=== PATIENT | female | born 1990 | race African-American/Black ===

== ENCOUNTER 2024-10-16 00:16 | Emergency (ER) | payer OTHER, SELFPAY ==
[2024-10-16 00:17] VITALS: BP 142/88
[2024-10-16 00:51] LABS: Hematocrit 32.0 % (37.0-47.0); Hemoglobin 10.6 g/dL (12.0-16.0); Mean Corp Hgb Conc. 33.1 g/dL (33.0-37.0); Mean Corpuscular Volume 95.0 fL (81.0-99.0); Nucleated Red Blood Cells % 0 %; Platelet Count 254 10^3/uL (130-400); Red Cell Dist. Width 13.2 % (11.5-14.5)
[2024-10-16 01:52] LABS: Beta HCG Quantitative 77078.00 mIU/ml
--- NOTE | 2024-10-16 02:50 | ED.GENMED ---
History of Present Illness
General
Chief Complaint: Problems
Source: patient
Exam Limitations: none
Time Seen by Provider: 10/16/24 02:41
Nursing documentation reviewed up to this point in time: agreed with
History of Present Illness
History of Present Illness:
This is a 34-year-old woman 4 para 2 currently 15 weeks . She presents with vaginal bleeding that began tonight just prior to arrival. Admits to passing a moderate amount of bright red blood without clots. She denies abdominal
pain or cramping. Vaginal bleeding noted after she voided but she has not noticed blood in her urine, no dysuria nor urgency nor hematuria. She does note a palpable bulge within her vagina that is only noted when she bears down.
Since arrival to the ED she has had no recurrent vaginal bleeding. Continues to deny abdominal pain, nor cramping, no vaginal fullness. No back pain or flank pain.
She follows with [facility] and has an appointment this week.
Past History
Past History
ED Past Medical History: Other (Ovarian cyst)
ED Past Surgical History: Orthopedic (Left ankle surgery)
Social History
Tobacco: Non-smoker
Alcohol: None
Personal: Single
Living: with family
Employment: Employed
Phy Exam
Physical Exam
Physical Exam:
GENERAL: 34-year-old woman appears her stated age, bright and alert, pleasant, appears in no acute distress.
EYE: anicteric
NECK: Supple, nontender, no meningismus, no significant adenopathy.
ENT: oral mucosa is moist. No rhinorrhea.
CARDIAC: Regular rate and rhythm. no murmur.
LUNGS: No respiratory distress.
ABDOMEN: Soft, nondistended, without focal tenderness, no r/g, no cvat. normoactive BS.
NEUROLOGICAL: Alert and oriented x3, no focal neuro deficits. Gait is steady.
SKIN: Warm and dry, normal color, skin intact. No rash.
MUSCULOSKELETAL: No C/C/E. peripheral pulses are full and equal b/l. No palpable tenderness.
PSYCH: Normal and appropriate interaction.
Course
Orders/Labs/Results
Orders:
Orders
10/16/24 00:20
US 1st Trimester Urgent
Comment:
Reason For Exam: 14 WEEKS WITH SPOTTING
10/16/24 00:43
Type+Screen Urgent
Beta HCG Quantitative Urgent
Is this a screen?: No
Complete Blood Count/With Diff Urgent
Abnormal Lab Results
10/16/24
00:43
WBC 12.5 H 10^3/uL
(4.8-10.8)
RBC 3.37 L 10^6/uL
(4.20-5.40)
Hgb 10.6 L g/dL
(12.0-16.0)
Hct 32.0 L %
(37.0-47.0)
MCH 31.5 H pg
(27.0-31.0)
Abs Immat Gran (auto) 0.1 H 10^3/uL
(0-0.05)
Absolute Neuts (auto) 9.3 H 10^3/uL
(1.4-6.5)
Absolute Monos (auto) 0.7 H 10^3/uL
(0.1-0.6)
Lymphocytes % 17.8 L %
(20.5-51.1)
10/16/24 00:43
Vital Signs
Initial and Last Documented VS:
Initial Vital Signs
Temp Pulse Resp BP Pulse Ox
98.1 F 80 20 142/88 99
10/16/24 00:17 10/16/24 00:17 10/16/24 00:17 10/16/24 00:17 10/16/24 00:17
Last Documented Vital Signs
Temp Pulse Resp BP Pulse Ox
98.1 F 78 18 136/76 99
10/16/24 00:17 10/16/24 02:52 10/16/24 02:52 10/16/24 02:52 10/16/24 02:58
Information
Weeks gestation: Weeks: (13 weeks, 5 days.)
Location: Location: ([facility])
MDM/Problems Addressed
Differential Diagnosis Includes:
Patient is 4 para 2 currently 14 weeks . Presents with an episode of vaginal bleeding.
She has had no recurrent bleeding, denies abdominal pain or cramping.
She does note somewhat longstanding history of palpable vulvar bulge when bearing down.
Concern for incompetent cervix, threatened miscarriage.
Ultrasound however is reassuring showing single viable [facility]. heart tones 155. Posterior placenta appears intact. Cervix is thick, closed measuring 5.1 cm.
Labs show mild but stable anemia. Type and Rh is O+.
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
It is reassuring that she has had no further bleeding and continues to deny abdominal pain or cramping.
Recommend pelvic rest as well as avoidance of bearing down.
Return precautions discussed.
*Radiology
Radiology exam reviewed: radiology read reviewed
*Pulse Oximetry
SaO2: 99
Oxygen Mode of Delivery: Room air
Patient hypoxic: no
*Critical Care Note
Total Time (30-74mins, 75-104mins- exclusive of procedures): Not Applicable
ED Attending Note
-
Portions of this chart may have been created with voice recognition software.� Occasional wrong word or��sound alike� substitutions may have occurred due to the inherent limitations of voice recognition software.
Discharge Plan
Departure
Patient Disposition: Home (Routine Discharge)
Date of Disposition: 10/16/24
Time of Disposition: 02:50
Patient with high blood pressure during this ER visit?: Yes
Condition: Good
Discharge Problem:
Threatened miscarriage
Instructions: Threatened Miscarriage (DC), BLOOD PRESSURE
Prescriptions:
No Action
prenat.vits,glory,[id number] Tablet
1 tab PO DAILY
acetaminophen 325 mg Tablet
650 mg PO Q4HPRN PRN (Reason: mild pain) Qty: 0 0RF
sennosides-docusate sodium [Senna Plus] 8.6-50 mg Tablet
1 tab PO DAILYPRN PRN (Reason: constipation) Qty: 0 0RF
ibuprofen 600 mg Tablet
400 mg PO Q4HPRN PRN (Reason: moderate pain/cramps) Qty: 0 0RF
Referrals:
PRIVATE,PHYSICIAN [Family Provider, Internal Medicine]
Activity Restrictions/Additional Instructions:
Follow-up with your boat worker this week for recheck.
Avoid straining to pass a bowel movement or to urinate.
We recommend pelvic rest, meaning nothing in your vagina including tampons, douching, as well as abstain from vaginal intercourse.
Interventions
Interventions:
*Risk Screen - Suicide Last Done: 10/16/24 00:17
*General Assessment Last Done: 10/16/24 00:50
*Neglect/Abuse Screening Last Done: 10/16/24 00:17
*ED- Fall Risk Assessment Last Done: 10/16/24 00:50
*Nursing Disposition Last Done: 10/16/24 02:58
ED-Female Genitourinary Assessment Last Done: 10/16/24 00:50
Discharge Date and Time
Discharge Date/Time: 10/16/24 02:58
Print Language: SYRIAC
[2024-10-16 02:52] VITALS: BP 136/76
== END 2024-10-16 02:58 | disposition home or self-care (01) ==
LOC: EMR 00:16
PROVIDERS: EMERGENCY PHYSICIAN Emergency Medicine
DX: O20.0 Threatened abortion (principal); Z3A.15 15 weeks gestation of pregnancy; O99.012 Anemia complicating pregnancy, second trimester; R03.0 Elevated blood-pressure reading, without diagnosis of hypertension; Z88.1 Allergy status to other antibiotic agents
CPT/HCPCS: 99284; 76801; 84702; 85025; 86850; 86900; 86901

== ENCOUNTER → 2024-12-04 07:07 | Outpatient (REF) | payer OTHER, SELFPAY | LOC: PNTC 07:07 | PROVIDERS: ATTENDING PHYSICIAN Obstetrics & Gynecology | DX: O09.529 Supervision of elderly multigravida, unspecified trimester (principal) | CPT/HCPCS: 76811 ==

== ENCOUNTER → 2025-01-01 07:47 | Outpatient (REF) | payer OTHER, SELFPAY | LOC: PNTC 07:47 | PROVIDERS: ATTENDING PHYSICIAN Obstetrics & Gynecology | DX: O99.212 Obesity complicating pregnancy, second trimester (principal); E66.01 Morbid (severe) obesity due to excess calories | CPT/HCPCS: 76816 ==

== ENCOUNTER → 2025-01-28 07:10 | Outpatient (REF) | payer OTHER, SELFPAY | LOC: PNTC 07:10 | PROVIDERS: ATTENDING PHYSICIAN Obstetrics & Gynecology | DX: O99.213 Obesity complicating pregnancy, third trimester (principal); E66.01 Morbid (severe) obesity due to excess calories | CPT/HCPCS: 76816 ==

== ENCOUNTER → 2025-02-26 07:11 | Outpatient (REF) | payer OTHER, SELFPAY | LOC: PNTC 07:11 | PROVIDERS: ATTENDING PHYSICIAN Obstetrics & Gynecology | DX: O99.213 Obesity complicating pregnancy, third trimester (principal); E66.01 Morbid (severe) obesity due to excess calories; Z36.88 Encounter for antenatal screening for fetal macrosomia | CPT/HCPCS: 76816 ==

== ENCOUNTER → 2025-03-12 07:04 | Outpatient (REF) | payer OTHER, SELFPAY | LOC: PNTC 07:04 | PROVIDERS: ATTENDING PHYSICIAN Obstetrics & Gynecology | DX: O99.213 Obesity complicating pregnancy, third trimester (principal); E66.01 Morbid (severe) obesity due to excess calories; Z36.88 Encounter for antenatal screening for fetal macrosomia | CPT/HCPCS: 59025; 76815 ==

== ENCOUNTER 2025-03-14 21:38 | Emergency (ER) | payer OTHER, SELFPAY ==
[2025-03-14 21:39] VITALS: BP 132/79
[2025-03-14 22:26] VITALS: BP 96/58
[2025-03-14 22:28] VITALS: BP 96/58
[2025-03-14 22:31] VITALS: BMI 46.8
[2025-03-14 23:11] VITALS: BP 106/52
[2025-03-14] MEDS: DUONEB 3 ML INH (23:19)
[2025-03-14] MEDS: NSS 1000 IV (23:44)
[2025-03-14 23:54] LABS: COVID-19 Antigen Negative (Negative)
[2025-03-15 00:01] VITALS: BP 104/61
[2025-03-15 01:00] VITALS: BP 133/81
--- NOTE | 2025-03-15 01:25 | ED.GENMED ---
History of Present Illness
General
Chief Complaint: Cold/Flu/URI Symptoms
Source: patient
Exam Limitations: none
Time Seen by Provider: 03/14/25 22:30
History of Present Illness
History of Present Illness:
Note:
CHIEF COMPLAINT(S)
Cough, greenish-yellow sputum, blood in sputum, difficulty breathing.
HISTORY OF PRESENT ILLNESS
The patient is a 35-year-old female who is , presenting with a worsening cough. Initially, the patient was feeling better but reported a return of symptoms approximately nine days ago. The cough has been productive of greenish-yellow sputum,
and tonight, she noticed the presence of blood in the sputum. There is associated difficulty in taking deep breaths. A low-grade fever was noted at home, reaching 100.1�F. The patient denies any recent medical treatment or medications for these
symptoms. movements are reported to be normal.
PHYSICAL EXAM
General: Alert, no acute distress. Dry cough noted on exam
Skin: Warm, dry.
Head: Normocephalic, atraumatic.
Neck: Supple, trachea midline.
Eye Ears, nose, mouth and throat: Oral mucosa moist.
Cardiovascular: Normal peripheral perfusion, no edema.
Respiratory: Respirations are non-labored. Lungs auscultation result not provided.
Gastrointestinal: Abdomen nondistended. Gravid uterus noted
Back: Normal range of motion, normal alignment.
Musculoskeletal: Normal range of motion, normal strength.
Neurological: Alert and oriented to person, place, time, and situation, no focal neurological deficit observed.
Psychiatric: Cooperative, appropriate mood & affect.
PLAN
- Perform a chest X-ray to rule out pneumonia.
- Order viral swabs for COVID-19 and influenza.
- Administer intravenous fluids to improve hydration and symptom relief.
- Provide a breathing treatment to help open the airways, potentially causing an initial increase in cough.
- Monitor heart tones.
DIFFERENTIAL DIAGNOSIS
The Differential Diagnosis includes, in no particular order and is not limited to:
1. Pneumonia
2. Upper respiratory tract infection
3. Acute bronchitis
4. Pulmonary embolism
5. Allergic reaction
6. Asthma exacerbation
7. Viral influenza
8. COVID-19 infection
9. Gastroesophageal reflux disease
10. Pulmonary edema
Disposition:
SUMMARY OF ENCOUNTER
The patient is a 35-year-old female who presented in the emergency department with a cough and a low-grade fever. At home, she took acetaminophen (Tylenol) to manage her fever. Upon arrival, she was afebrile, and her vital signs, including
pulse oximetry, were within normal limits. After treatment with intravenous fluids and bronchodilators, the patient reported feeling much better. A chest X-ray was performed and did not demonstrate signs of pneumonia. COVID-19 and influenza tests
were both negative. The heart rate was also confirmed to be normal. Clinical suspicion leans towards acute bronchitis.
DISPOSITION
Discharge
ASSESSMENT
The patient is likely experiencing acute bronchitis.
EMERGENCY TREATMENTS ADMINISTERED
Intravenous fluids and bronchodilator treatment were provided, which improved the patients symptoms.
PLAN
The patient will be discharged with a prescription for an inhaler to aid breathing. It is advised to maintain proper hydration and continue taking acetaminophen for any fever that may arise. Steroids and antibiotics are not prescribed at this time.
The patient is advised to follow up with her OB for continued care.
INDEPENDENT REVIEW OF LABS AND INTERPRETATION OF TESTS
- My independent review of the chest X-ray indicates no pneumonia.
- My independent review of viral swabs shows negative results for COVID-19 and influenza.
PATIENT EDUCATION AND COUNSELING
The patient was counseled on the importance of adequate fluid intake and fever management with acetaminophen. She was also advised on her current condition of suspected bronchitis and the plan for treatment.
MEDICATION RECONCILIATION
- Prescription for an inhaler provided for use as needed for breathing difficulties.
- Continues to use acetaminophen for fever control.
MEDICAL DECISION MAKING
- Complexity of Data Reviewed: The differential diagnosis included pneumonia, upper respiratory tract infection, acute bronchitis, pulmonary embolism, asthma exacerbation, COVID-19 infection, and viral influenza.
- Data:
- Category 1: COVID-19 and influenza tests reviewed; chest X-ray independently interpreted.
- Risk: Consideration of Admission/Observation: Escalation of care including admission/observation was considered given the complexity and risk of the patients presenting complaint. However, I feel the patient is safe for outpatient management with
close follow-up. Reasoning: Work-up is reassuring, does not reveal any acute life/organ-threatening processes, patients symptoms are well controlled upon re-evaluation, re-examination is reassuring, vitals are stable, patient agreeable with
discharge, reliable for follow-up.
DIAGNOSIS
- Acute bronchitis (J20.9)
Past History
Past History
ED Past Medical History: Other (Ovarian cyst)
ED Past Surgical History: Orthopedic (Left ankle surgery)
Social History
Tobacco: Non-smoker
Alcohol: None
Personal: Single
Living: with family
Employment: Employed
Phy Exam
Physical Exam
Physical Exam:
.
Course
Orders/Labs/Results
Orders:
Orders
03/14/25 22:31
CR Chest - 2 Views Urgent
Comment:
Reason For Exam: cough, fever
03/14/25 22:42
Ipratropium/Albuterol Sulfate [Duoneb] 3 ml INH R NOW STA
03/14/25 22:43
0.9% Sodium Chloride 1000 ml [Nss] 1,000 ml IV BOLUS
03/14/25 23:21
COVID-19 Antigen Urgent
Source: Nasal Swab
Influenza A+B Rapid Molecular Urgent
VAISHALI Source: Nasal Swab
Specimen Description:
Vital Signs
Initial and Last Documented VS:
Initial Vital Signs
Temp Pulse Resp BP Pulse Ox
98.1 F 97 20 132/79 99
03/14/25 21:39 03/14/25 21:39 03/14/25 21:39 03/14/25 21:39 03/14/25 21:39
Last Documented Vital Signs
Temp Pulse Resp BP Pulse Ox
98.5 F 94 20 96/58 97
03/14/25 23:30 03/14/25 23:30 03/14/25 23:30 03/14/25 22:28 03/14/25 23:30
*Pulse Oximetry
SaO2: 97
Oxygen Mode of Delivery: Room air
Patient hypoxic: no
*Critical Care Note
Total Time (30-74mins, 75-104mins- exclusive of procedures): Not Applicable
ED Attending Note
-
Portions of this chart may have been created with voice recognition software.� Occasional wrong word or��sound alike� substitutions may have occurred due to the inherent limitations of voice recognition software.
Discharge Plan
Departure
Patient Disposition: Home (Routine Discharge)
Date of Disposition: 03/15/25
Time of Disposition: :
Patient with high blood pressure during this ER visit?: No
Discharge Problem:
Acute bronchitis
Instructions: Acute Bronchitis, Adult (DC)
Prescriptions:
New
albuterol sulfate [Ventolin HFA] 90 mcg/actuation HFA aerosol inhaler
2 puff inhalation Q6H PRN (Reason: shortness of breath or wheezing) Qty: 6.7 0RF
No Action
prenat.vits,glory,[id number]-vjsxj Tablet
1 tab PO DAILY
acetaminophen 325 mg Tablet
650 mg PO Q4HPRN PRN (Reason: mild pain) Qty: 0 0RF
sennosides-docusate sodium [Senna Plus] 8.6-50 mg Tablet
1 tab PO DAILYPRN PRN (Reason: constipation) Qty: 0 0RF
ibuprofen 600 mg Tablet
400 mg PO Q4HPRN PRN (Reason: moderate pain/cramps) Qty: 0 0RF
Referrals:
Asmita Ibarra [Other]
UNKNOWN - PT DOES,NOT KNOW [Family Provider]
Activity Restrictions/Additional Instructions:
Please drink plenty fluids and use Tylenol as needed. Please see your OB in the next 3 to 5 days for follow-up valuation. Return immediately for difficulty breathing, worsening symptoms or any other concerns.
Interventions
Interventions:
*Risk Screen - Suicide Last Done: 03/14/25 21:43
*General Assessment Last Done: 03/14/25 21:43
*Neglect/Abuse Screening Last Done: 03/14/25 21:43
*ED- Fall Risk Assessment Last Done: 03/14/25 21:43
*ED COVID-19 Vaccine History Last Done: 03/14/25 21:43
*ED Influenza Vaccine History Last Done: 03/14/25 21:43
ED- Pulmonary Assessment Last Done: 03/14/25 22:32
Discharge Date and Time
Print Language: BERMUDIAN
== END 2025-03-15 01:56 | disposition home or self-care (01) ==
LOC: EMR 21:38
PROVIDERS: EMERGENCY PHYSICIAN Emergency Medicine
DX: O99.519 Diseases of the respiratory system complicating pregnancy, unspecified trimester (principal); J20.9 Acute bronchitis, unspecified; Z3A.00 Weeks of gestation of pregnancy not specified
CPT/HCPCS: 99284; 96360; 94640; 71046; 87502; 87811

== ENCOUNTER → 2025-03-19 07:04 | Outpatient (REF) | payer OTHER, SELFPAY | LOC: PNTC 07:04 | PROVIDERS: ATTENDING PHYSICIAN Obstetrics & Gynecology | DX: O99.213 Obesity complicating pregnancy, third trimester (principal); E66.01 Morbid (severe) obesity due to excess calories; Z36.88 Encounter for antenatal screening for fetal macrosomia | CPT/HCPCS: 59025; 76815 ==

== ENCOUNTER → 2025-03-26 07:01 | Outpatient (REF) | payer OTHER, SELFPAY | LOC: PNTC 07:01 | PROVIDERS: ATTENDING PHYSICIAN Obstetrics & Gynecology | DX: O99.213 Obesity complicating pregnancy, third trimester (principal); E66.01 Morbid (severe) obesity due to excess calories; Z36.88 Encounter for antenatal screening for fetal macrosomia | CPT/HCPCS: 59025; 76816 ==

== ENCOUNTER → 2025-04-04 08:00 | Outpatient (REF) | payer OTHER, SELFPAY | LOC: PNTC 08:00 | PROVIDERS: ATTENDING PHYSICIAN Obstetrics & Gynecology | DX: O99.213 Obesity complicating pregnancy, third trimester (principal); E66.01 Morbid (severe) obesity due to excess calories; Z36.88 Encounter for antenatal screening for fetal macrosomia | CPT/HCPCS: 59025; 76815 ==

== ENCOUNTER 2025-04-07 22:58 | Inpatient (IN) | payer OTHER, SELFPAY ==
[2025-04-07 23:34] VITALS: BP 115/61; BMI 46.4
[2025-04-08 00:12] LABS: Hematocrit 29.5 % (37.0-47.0); Hemoglobin 9.6 g/dL (12.0-16.0); Mean Corp Hgb Conc. 32.5 g/dL (33.0-37.0); Mean Corpuscular Volume 94.6 fL (81.0-99.0); Platelet Count 250 10^3/uL (130-400); Red Cell Dist. Width 14.5 % (11.5-14.5)
[2025-04-08] MEDS: GENTAMICIN 60 MG IV (00:43)
[2025-04-08] MEDS: LR 1000 IV (00:43)
[2025-04-08] MEDS: TYLENOL 975 MG PO (00:50)
[2025-04-08] MEDS: BICITRA 30 ML PO (00:50)
[2025-04-08] MEDS: PITOCIN 30 UNITS/NSS 500 ML IV (02:45)
[2025-04-08] MEDS: BENADRYL 25 MG IV (02:47)
[2025-04-08] MEDS: ZOFRAN 4 MG IV (06:38)
[2025-04-08] MEDS: COLACE 100 MG PO ×2 (07:50→20:01)
[2025-04-08] MEDS: TORADOL 15 MG IV ×3 (07:50→20:01)
[2025-04-08] MEDS: PRENATAL PLUS 1 TABLET PO (07:50)
[2025-04-08] MEDS: REGLAN 10 MG IV (07:51)
--- NOTE | 2025-04-08 07:54 | W.PN.ANS.POP ---
Anesthesia Post Operative
- Anesthesia Post Op Note
Vital Signs Stable-See Nursing Note: Yes
Airway Patent: Yes
Adequate Pain Control: Yes
Change in Mental Status: No
Current Postoperative Nausea & Vomiting: Yes (received 4mg zofran. Team made aware and is working to improve comfort.)
Anesthesia Complications: No
General Anesthetic Recall: No
Unplanned Admission: No
Post Op Hydration Adequate: Yes
[2025-04-08] MEDS: BENADRYL 25 MG PO (20:54)
[2025-04-09] MEDS: TORADOL 15 MG IV (02:00)
[2025-04-09 05:50] LABS: Hematocrit 27.8 % (37.0-47.0); Hemoglobin 8.8 g/dL (12.0-16.0); Mean Corp Hgb Conc. 31.7 g/dL (33.0-37.0); Mean Corpuscular Volume 97.2 fL (81.0-99.0); Platelet Count 232 10^3/uL (130-400); Red Cell Dist. Width 14.3 % (11.5-14.5)
[2025-04-09] MEDS: COLACE 100 MG PO (08:41)
[2025-04-09] MEDS: FEOSOL 325 MG PO (08:41)
[2025-04-09] MEDS: PRENATAL PLUS 1 TABLET PO (08:41)
[2025-04-09] MEDS: MOTRIN 600 MG PO (08:41)
[2025-04-09] MEDS: ROXICODONE 10 MG PO ×2 (08:42→14:45)
[2025-04-10 11:23] LABS: Syphilis/T. pallidum Ab Reflex Negative (Negative)
== END 2025-04-09 17:58 | disposition home or self-care (01) | DRG 788 ==
LOC: LDRP 22:58
PROVIDERS: Obstetrics & Gynecology; ADMITTING PHYSICIAN Obstetrics & Gynecology
PROC: 10D00Z1 Extraction of Products of Conception, Low, Open Approach (ICD-10-PCS; 2025-04-08)
DX: O36.63X0 Maternal care for excessive fetal growth, third trimester, not applicable or unspecified (principal); L98.9 Disorder of the skin and subcutaneous tissue, unspecified; O99.72 Diseases of the skin and subcutaneous tissue complicating childbirth; Z3A.38 38 weeks gestation of pregnancy; Z37.0 Single live birth; N83.8 Other noninflammatory disorders of ovary, fallopian tube and broad ligament; O34.83 Maternal care for other abnormalities of pelvic organs, third trimester
CPT/HCPCS: 85027; 86780; 86850; 86900; 86901; 88304